=== PATIENT | male | born 1970 | race Caucasian/White ===

== ENCOUNTER 2016-07-08 09:12 | Emergency (ER) | payer SELFPAY ==
[2016-07-08 09:33] VITALS: TEMP 97.1
--- NOTE | 2016-07-08 09:50 | ED.PDOC ---
History of Present Illness - General Chief Complaint: Problem Stated Complaint: right flank pain Time Seen by Provider: 07/08/16 09:32 Source: patient Exam Limitations: no limitations - History of Present Illness Initial Comments: Patient presents with right flank pain for two days. Pain is specifically located about 7 cm inferior to the CVA. Worse with flexion and rotation of the trunk. Better with rest. Sharp in nature, constant. Also worse with deep palpation of the area. No radiation. No previous episodes. No hematuria/ frequency/dysuria. No hx of nephrolithiasis. No recent trauma or heavy physical activity. No other complaints. Timing/Duration: other - 2 days Severity: mild Improving Factors: rest Worsening Factors: movement Associated Symptoms: denies symptoms Allergies/Adverse Reactions: Allergies Penicillins Allergy (Mild, Verified 11/01/12 09:14) Home Medications: Ambulatory Orders Cyclobenzaprine HCl [Flexeril] 10 mg PO Q8HR PRN #10 tab 07/08/16 Review of Systems - Review of Systems Constitutional: States: no symptoms reported EENTM: States: no symptoms reported Respiratory: States: no symptoms reported Cardiology: States: no symptoms reported Gastrointestinal/Abdominal: States: no symptoms reported Genitourinary: States: no symptoms reported Musculoskeletal: States: see HPI Skin: States: no symptoms reported Neurological: States: no symptoms reported Endocrine: States: no symptoms reported Hematologic/Lymphatic: States: no symptoms reported Past Medical History (General) - Patient Medical History Hx Seizures: No Hx Stroke: No Hx Dementia: No Hx Asthma: No Hx of COPD: No Hx Cardiac Disorders: No Hx Congestive Heart Failure: No Hx Pacemaker: No Hx Hypertension: No Hx Thyroid Disease: No Hx Diabetes: No Hx Gastroesophageal Reflux: No Hx Renal Disease: No Hx of HIV: No Hx MRSA: No Surgical History: no surgical history Family Medical History - Family History Mother Family History: Unknown Physical Exam - Physical Exam General Appearance: Alert Respiratory: lungs clear Cardiovascular/Chest: normal peripheral pulses, regular rate, rhythm Gastrointestinal/Abdominal: normal bowel sounds, non tender Back Exam: no CVA tenderness, other - TTP over lateral right quadratus lumborum. Pain is reproduced with rotation of the trunk and flexion of the trunk but not with heel walking. Negative straight and cross-leg raise. Extremity: normal range of motion Neurologic: no motor/sensory deficits Skin Exam: normal color Progress - Progress Progress: 07/08/16 12:49 Patient had isolated leukocytosis with a normal differential. CT abdomen/pelvis and CXR all showed no acute disease nor focus of infection. UA negative. Patient afebrile. During the course of his ER stay he admitted that he has been under an unusual amount of stress recently because of a lack of employment. He smokes 1 ppd x 30 years. Leukocytosis DDX: smoking vs stress reaction vs. anxiety vs increased natural glucocorticoids Recommend follow up with pcp to repeat cbc and return to ER for any emerging sx. Norflex 60 mg IV x one relieved the back pain Laboratory Tests 07/08/16 07/08/16 07/08/16 09:23 09:45 10:30 WBC 16.5 H RBC 4.92 Hgb 15.7 Hct 46.3 MCV 94.1 H MCH 32.0 H MCHC 34.0 RDW 13.6 Plt Count 244 MPV 7.5 Absolute Neuts (auto) 11.90 H Absolute Lymphs (auto) 3.20 Absolute Monos (auto) 1.20 H Absolute Eos (auto) 0.10 Absolute Basos (auto) 0.10 Neutrophils % 71.7 Lymphocytes % 19.4 L Monocytes % 7.5 Eosinophils % 0.9 L Basophils % 0.5 Sodium 139 Potassium 3.5 L Chloride 108 Carbon Dioxide 26 Anion Gap 8.5 L BUN 7 Creatinine 0.89 BUN/Creatinine Ratio 7.9 L Random Glucose 115 H Serum Osmolality 276.4 Calcium 9.2 Total Bilirubin 0.8 AST 18 ALT 11 Alkaline Phosphatase 72 C-Reactive Protein < 0.5 Serum Total Protein 7.3 Albumin 4.6 Globulin 2.7 Albumin/Globulin Ratio 1.7 Lipase 30 TSH 6.10 H Thyroxine (T4) 9.20 Urine Color Yellow Urine Appearance Clear Urine pH 5.5 Ur Specific [place] 1.010 Urine Protein Negative Urine Glucose (UA) Negative Urine Ketones Negative Urine Blood Negative Urine Nitrite Negative Urine Bilirubin Negative Urine Urobilinogen 0.2 Ur Leukocyte Esterase Negative Urine RBC 0 Urine WBC 0 Ur Epithelial Cells 0 Urine Bacteria 0 07/08/16 11:44 WBC 16.3 H RBC 4.87 Hgb 15.5 Hct 45.9 MCV 94.4 H MCH 31.9 H MCHC 33.8 RDW 13.4 Plt Count 222 MPV 7.5 Absolute Neuts (auto) 12.40 H Absolute Lymphs (auto) 2.70 Absolute Monos (auto) 1.10 H Absolute Eos (auto) 0.10 Absolute Basos (auto) 0.00 Neutrophils % 76.0 Lymphocytes % 16.7 L Monocytes % 6.5 Eosinophils % 0.5 L Basophils % 0.3 Sodium Potassium Chloride Carbon Dioxide Anion Gap BUN Creatinine BUN/Creatinine Ratio Random Glucose Serum Osmolality Calcium Total Bilirubin AST ALT Alkaline Phosphatase C-Reactive Protein Serum Total Protein Albumin Globulin Albumin/Globulin Ratio Lipase TSH Thyroxine (T4) Urine Color Urine Appearance Urine pH Ur Specific [place] Urine Protein Urine Glucose (UA) Urine Ketones Urine Blood Urine Nitrite Urine Bilirubin Urine Urobilinogen Ur Leukocyte Esterase Urine RBC Urine WBC Ur Epithelial Cells Urine Bacteria Departure - Departure Clinical Impression: Back pain, Leukocytosis Disposition: Discharge to Home or Self Care Condition: Good Departure Forms: ED Discharge - Pt. Copy, Patient Portal Self Enrollment Diet: resume usual diet Activity: increase activity as tolerated Prescriptions: Cyclobenzaprine HCl [Flexeril] 10 mg PO Q8HR PRN #10 tab PRN Reason: Pain Home Medications: Ambulatory Orders Cyclobenzaprine HCl [Flexeril] 10 mg PO Q8HR PRN #10 tab 07/08/16 Additional Instructions: Follow up with a regular doctor to see how your symptoms are doing. You should get a repeat blood test in one week. We are providing numbers for doctors in the area as well as contact numbers so you can sign up for insurance. Return to the ER for fever or increasing symptoms.
[2016-07-08] MEDS ORDERED: MORPHINE SULFATE INJ 10 MG/ML VIAL IV ONE (10:04)
[2016-07-08] MEDS ORDERED: ACETAMINOPHEN 325 MG TAB PO ONE (10:08)
--- NOTE | 2016-07-08 10:38 | CT ---
EXAM DESCRIPTION: Abdoment/Pelvis w/o Contrast CLINICAL HISTORY: 46 years,Male,right flank pain COMPARISON: None TECHNIQUE: Multiple axial helical tomographic images were obtained of the abdomen and pelvis with out IV or oral contrast and then reconstructed sagittal coronal plane FINDINGS: The unenhanced liver is unremarkable. The spleen is unremarkable. The Pancreas is unremarkable. The adrenal glands are unremarkable. There are no stones seen in the urinary collection system. The kidneys left kidney demonstrates a 1.5 cm simple cysts parenchymal anterior midpole. And a similar size cyst in the lower pole right kidney. The gallbladder is unremarkable. No free air free fluid masses or adenopathy. The included bowel are unremarkable. The lung bases are unremarkable. The surrounding soft tissues are unremarkable. The bony elements age appropriate . Appendix is unremarkable. And there is mild calcified atherosclerotic disease of aorta and iliac vessels. IMPRESSION: Unremarkable ultrasound of the abdomen and pelvis. Except for a small simple cysts in the midpole left kidney and lower pole right kidney. Electronically signed by: Trever Trammell MD 07/08/2016 10:35 AM CDT
--- NOTE | 2016-07-08 11:19 | RAD ---
EXAM DESCRIPTION: XR CHEST 2 VIEWS CLINICAL HISTORY: right flank discomfort COMPARISON: None TECHNIQUE: PA/lateral FINDINGS: The lungs are clear of infiltrate. There is no effusion or nodule. The lungs appear hyperinflated with flattening of the diaphragms. There is hyperlucency of the lungs as well. These findings are most consistent with chronic emphysema. IMPRESSION: 1. Chronic changes consistent with emphysema, no acute process observed. Electronically signed by: Will Chappell MD 07/08/2016 11:18 AM CDT
[2016-07-08] MEDS ORDERED: ORPHENADRINE CITRATE 30 MG/ML AMP IV ONE (12:03)
[2016-07-08 12:21] VITALS: O2SAT 98
[2016-07-08 13:06] VITALS: BP 119/77
== END 2016-07-08 13:06 | disposition home or self-care (01) ==
LOC: ER 09:12
DX: M54.9 Dorsalgia, unspecified (principal); D72.829 Elevated white blood cell count, unspecified; F17.210 Nicotine dependence, cigarettes, uncomplicated; Z88.0 Allergy status to penicillin
CPT/HCPCS: 36415; 71020; 74176; 80053; 81001; 82533; 83690; 84436; 84443; 85025; 86140; J2360

== ENCOUNTER 2016-09-22 13:17 | Observation (INO) | payer SELFPAY ==
[2016-09-22] MEDS ORDERED: ONDANSETRON INJ 4 MG/2 ML VIAL IV ONE (13:34)
[2016-09-22] MEDS ORDERED: SODIUM CHLORIDE 0.9% 1000ML 1,000 ML IVS ONE (13:34)
--- NOTE | 2016-09-22 13:38 | ED.PDOC ---
History of Present Illness - General Chief Complaint: Neuro Symptoms/Deficits Stated Complaint: Lightheaded and dizzy Time Seen by Provider: 09/22/16 13:28 Source: patient, RN notes reviewed, Vital Signs reviewed Exam Limitations: no limitations - History of Present Illness Initial Comments: Patient has been lightheaded and dizzy since getting up this morning. Has worsened through the morning. Feels similar to when he had heat exhaustion in the past. No MCKEON, no SOB or chest pain. + nausea. Feels a little off balance when he moves his head. No numbness or weakness. Timing/Duration: 4-6 hours Severity: moderate Improving Factors: nothing Worsening Factors: movement Associated Symptoms: nausea/vomiting Allergies/Adverse Reactions: Allergies Penicillins Allergy (Mild, Verified 11/01/12 09:14) Home Medications: Ambulatory Orders Cyclobenzaprine HCl [Flexeril] 10 mg PO Q8HR PRN #10 tab 07/08/16 Review of Systems - Review of Systems Constitutional: States: no symptoms reported. Denies: chills, diaphoresis, fever, malaise, weakness EENTM: States: no symptoms reported Respiratory: States: no symptoms reported. Denies: short of breath Cardiology: States: no symptoms reported. Denies: chest pain, palpitations, syncope Gastrointestinal/Abdominal: States: nausea. Denies: abdominal pain, diarrhea, vomiting Musculoskeletal: States: no symptoms reported Skin: States: no symptoms reported Neurological: States: see HPI. Denies: headache, numbness, paresthesia, tingling, weakness Endocrine: States: no symptoms reported Hematologic/Lymphatic: States: no symptoms reported Past Medical History (General) - Patient Medical History Hx Seizures: No Hx Stroke: No Hx Dementia: No Hx Asthma: No Hx of COPD: No Hx Cardiac Disorders: No Hx Congestive Heart Failure: No Hx Pacemaker: No Hx Hypertension: No Hx Thyroid Disease: No Hx Diabetes: No Hx Gastroesophageal Reflux: No Hx Renal Disease: No Hx of HIV: No Hx MRSA: No Family Medical History - Family History Mother Family History: Unknown Physical Exam - Physical Exam General Appearance: Alert, Comfortable, No apparent distress, Well Developed, Well Groomed, Well Hydrated, Well Nourished Eye Exam: bilateral normal Ears, Nose, Throat: hearing grossly normal, normal ENT inspection, normal pharynx Neck: non-tender, full range of motion, supple, normal inspection Respiratory: chest non-tender, lungs clear, normal breath sounds, no respiratory distress, no accessory muscle use Cardiovascular/Chest: regular rate, rhythm, no edema, no gallop, no JVD, no murmur Gastrointestinal/Abdominal: normal bowel sounds, non tender, soft, no organomegaly, no pulsatile mass Extremity: normal range of motion Neurologic: medical underwriter II-XII nml as tested, no motor/sensory deficits, alert, normal mood/affect, oriented x 3 Skin Exam: diaphoresis Comments: Vital Signs - 24 hr 09/22/16 13:20 Temperature 98.0 F Pulse Rate [ 75 left brachial] Respiratory 20 Rate Blood Pressure 132/58 [left brachial] O2 Sat by Pulse 97 Oximetry Progress - Progress Progress: 09/22/16 14:57 HR has dropped into the 40's. Will get EKG and add cardiac enzymes to work up. 09/22/16 15:31 Discussed with Honey Trujillo, will admit for symptomatic bradycardia. Patient agreeable to admission. - Results/Orders Results/Orders: Laboratory Tests 09/22/16 09/22/16 09/22/16 13:45 13:45 13:45 WBC 10.0 RBC 4.45 L Hgb 14.5 Hct 42.6 MCV 95.9 H MCH 32.5 H MCHC 34.0 RDW 13.9 Plt Count 203 MPV 7.8 Absolute Neuts (auto) 7.40 H Absolute Lymphs (auto) 1.80 Absolute Monos (auto) 0.70 Absolute Eos (auto) 0.10 Absolute Basos (auto) 0.10 Neutrophils % 73.9 Lymphocytes % 17.9 L Monocytes % 6.7 Eosinophils % 0.8 L Basophils % 0.7 Sodium 140 Potassium 3.6 Chloride 106 Carbon Dioxide 26 Anion Gap 11.6 L BUN 9 Creatinine 1.00 BUN/Creatinine Ratio 9.0 L Random Glucose 127 H Serum Osmolality 279.7 Calcium 9.2 Total Bilirubin 0.7 AST 20 ALT 13 Alkaline Phosphatase 80 Creatine Kinase 199 H CK-MB (CK-2) 2.5 CK-MB (CK-2) % Not Reportable Troponin I < 0.02 Serum Total Protein 6.9 Albumin 4.3 Globulin 2.6 Albumin/Globulin Ratio 1.7 - EKG/XRAY/CT EKG: Leonardo, Sinus, no ST T wave changes Comments: with sinus arrhythmia, Rate 45 CT Ordered: Yes - Head: no acute changes per Rad Departure - Departure Clinical Impression: Sinus bradycardia, Dizziness, Vertigo Time of Disposition: 15:32 Disposition: Admit Patient Condition: Fair Departure Forms: ED Discharge - Pt. Copy, Patient Portal Self Enrollment Home Medications: Ambulatory Orders Cyclobenzaprine HCl [Flexeril] 10 mg PO Q8HR PRN #10 tab 07/08/16 Decision To Admit - Decistion To Admit Decision to Admit Reason: Admit from ER Decision to Admit Date: 09/22/16 Decision to Admit Time: 15:30
--- NOTE | 2016-09-22 14:53 | CT ---
EXAM DESCRIPTION: Head. CT head without contrast. CLINICAL HISTORY: Headache and dizziness. COMPARISON: None available TECHNIQUE: Multiple axial images of the head without contrast. This exam was performed according to our departmental dose-optimization program, which includes automated exposure control, adjustment of the mA and/or kV according to patient size and/or use of iterative reconstruction technique. FINDINGS: There is no CT evidence of intracranial hemorrhage, mass effect, or acute cortical infarction. The brain parenchyma and ventricles are normal. There are no abnormal extra-axial fluid collections. Vascular structures are unremarkable. There is no acute calvarial defect. Moderate mucosal thickening throughout the ethmoid air cells. The mastoid air cells are clear. IMPRESSION: No CT evidence of an acute intracranial abnormality. Electronically signed by: Jesus Dyer MD 09/22/2016 2:53 PM CDT
--- NOTE | 2016-09-22 15:59 | HP ---
SUPERVISING PHYSICIAN: Saravanan Ken MD CHIEF COMPLAINT: Weakness and dizziness. HISTORY OF PRESENT ILLNESS: This is a 46-year-old, male patient who presented to the Emergency Room today with dizziness and lightheadedness that had started earlier in the morning. He actually had these symptoms about a month ago, but no other symptoms prior to that. 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 There was no loss of consciousness. He did have dry mouth as well as some symptoms of acid reflux. There was no shortness of breath or chest pain. He did feel slightly nauseated. He was given some fluids in the Emergency Room. His WBCs were 10, hemoglobin 14.5, hematocrit 42.6, platelet count 203. Sodium 140, potassium 3.6, chloride 106, carbon dioxide 26, BUN 9, creatinine 1, glucose 127. Initial creatinine kinase was 199. CK-MB 2.5, troponin less than 0.02. CT of the head was done and per radiologic interpretation showed no CT evidence of acute intracranial abnormality. His vital signs in the Emergency Room initially showed he was afebrile, heart rate 75, blood pressure 132/58, respiratory rate 16, O2 saturation 98% on room air. The patient was about to be discharged from the Emergency Room and on telemetry, his heart rate dropped down to 47 and over the course of the next several hours, his heart rate continued between 48 and 50. He had no complaints of shortness of breath or chest pain during that. He did continue some complaints of slight dizziness. I was called for admission. PAST MEDICAL HISTORY: 1. Back injury in 1994. Otherwise, no medical history. PAST SURGICAL HISTORY: None. CURRENT MEDICATIONS: No outpatient medications. ALLERGIES: NO KNOWN DRUG ALLERGIES. SOCIAL HISTORY: He smokes approximately one pack of cigarettes a day. He has smoked for 32+ years. He rarely drinks alcoholic beverages and he denies any illicit drug use. He is single. He works at [employer] at [employer] [place]. 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 REVIEW OF SYSTEMS: Negative with the exception as per history of present illness. PHYSICAL EXAMINATION: VITAL SIGNS: Temperature 97.4. Heart rate 50. Blood pressure 123/77. Respiratory rate 16. O2 99%. GENERAL: This is a 46-year-old male patient who is lying in hospital bed in no acute distress. HEENT: Normocephalic, atraumatic. Pupils are equal and reactive. Oropharynx is clear. Oral mucous membranes are moist. NECK: Supple without mass. RESPIRATORY: Clear to auscultation bilaterally. CHEST: There is equal rise and fall of the chest with inspiration and expiration. CARDIOVASCULAR: Bradycardic rate and rhythm. ABDOMEN: Soft, nondistended, nontender. Bowel sounds are positive. EXTREMITIES: No cyanosis, clubbing or edema. NEUROLOGIC: Awake, alert and oriented times three. LABORATORY: Labs and films are per the history of present illness. He does have his second set of cardiac enzymes pending. All other labs and films have been reviewed via the EMR. ASSESSMENT: 1. Symptomatic bradycardia. 2. Dizziness and weakness. 3. Possible heat exhaustion, with a normal serum osmolality. 4. Hyperglycemia. PLAN: We will place the patient in observation, place him on the plant safety engineer and watch his heart rate overnight. I will check some lab in the morning, a TSH, hemoglobin A1c. We will refer him to cardiology at some point and he needs to get a primary care provider as he does not have one at this point. We will also contact [facility] for help in that area. I will check a chest x-ray in the morning as well as give him some p.r.n. breathing treatments. We will monitor the patient closely and followup as needed. Dr. Ken is the collaborating physician and available for consultation. #[id number] [facility]
[2016-09-22] MEDS ORDERED: SODIUM CHLORIDE 0.9% (FLUSH) 10 ML SYG IV PRN (18:01)
[2016-09-22] MEDS ORDERED: MORPHINE SULFATE INJ 10 MG/ML VIAL IV PRN (18:01)
[2016-09-22] MEDS ORDERED: ACETAMINOPHEN 325 MG TAB PO PRN (18:01)
[2016-09-22] MEDS ORDERED: NITROGLYCERIN 0.4 MG 25 EA TAB SL PRN (18:01)
[2016-09-22] MEDS ORDERED: IV SET AND CAP CHANGE INJ INJ SCH (18:30)
[2016-09-22] MEDS ORDERED: ALBUTEROL SULFATE 2.5 MG/3 ML VIAL NEB PRN (19:11)
[2016-09-22] MEDS: SODIUM CHLORIDE 0.9% (FLUSH) 10 ML SYG IV SCH (20:32)
[2016-09-22] MEDS: LORATADINE 10 MG TAB PO SCH (20:32)
[2016-09-22] MEDS ORDERED: BENZOCAINE-MENTH LOZ (CEPACOL) 1 EA LOZ MT PRN (22:54)
[2016-09-23] MEDS: PANTOPRAZOLE SODIUM TAB 40 MG PO SCH ×2 (05:53→05:58)
--- NOTE | 2016-09-23 07:00 | RAD ---
Procedure: XR CHEST 2 VIEWS Exam Date: 09/23/2016 Ordering Provider: VENANCIO CAMPOS Clinical Indication: bradycardia Comparison: 07/08/2016 Findings: Cardiac silhouette: Normal Pulmonary vasculature : Normal Mediastinal contour: Normal Aortic contour: Normal Focal lung consolidation: None. COPD. Pleural effusion: None Pneumothorax: None Acute bony or soft tissue abnormality: None Impression: 1. No acute abnormalities in the chest. Electronically signed by: Charlie Martell MD 09/23/2016 7:00 AM CDT
[2016-09-23] MEDS ORDERED: ASPIRIN TABLET 325 MG TAB ONE (07:16)
[2016-09-23] MEDS: LORATADINE 10 MG TAB PO SCH (08:50)
[2016-09-23] MEDS: SODIUM CHLORIDE 0.9% (FLUSH) 10 ML SYG IV SCH ×2 (08:50→21:06)
[2016-09-23] MEDS: ASPIRIN TABLET 325 MG TAB PO SCH (08:50)
--- NOTE | 2016-09-23 11:15 | PN ---
SUPERVISING PHYSICIAN: Saravanan Ken MD DATE: 09/23/16 SUBJECTIVE: The patient is sitting up in his hospital bed. He is visiting with friends. He has no complaints of chest pain, shortness of breath, nausea, vomiting, or dizziness. We discussed at length his plan of care including seeing Dr. Gonzalez tomorrow. OBJECTIVE: VITAL SIGNS: Afebrile. Heart rate 49 to 52 beats per minute. Blood pressure 117/65. Respiratory rate 18. O2 saturation 94% on room air. LUNGS: Clear to auscultation bilaterally. CARDIAC: Bradycardic rate and regular rhythm. ABDOMEN: Soft, nontender, nondistended. Bowel sounds are positive. EXTREMITIES: No cyanosis, clubbing or edema. NEUROLOGIC: Awake, alert and oriented times three. LABORATORY: White count 10, hemoglobin 14.3, hematocrit 41.5. Sodium 138, potassium 4.1, chloride 109, carbon dioxide 23, BUN 10, creatinine 0.85, serum osmolality 274.6. His second set of cardiac enzymes were negative. Serum protein 6. Triglycerides 69, LDL cholesterol 136.9, HDL cholesterol 37. TSH 1.61. Hemoglobin A1c 5.2. Chest x-ray per radiologic interpretation showed no acute abnormalities in the chest. All other labs and films have been reviewed via the EMR. ASSESSMENT: 1. Symptomatic bradycardia. 2. Dizziness and weakness. 3. Possible heat exhaustion, with a normal serum osmolality on admission. 4. Hyperglycemia, now resolved. Hemoglobin A1c 5.2. PLAN: We will continue present supportive care. We will watch his cardiac rhythm overnight. I have consulted Dr. Gonzalez for in the morning and we will defer his cardiac issues to him as long as he does not have any problems overnight. Otherwise, we will continue to monitor the patient closely and followup as needed. Dr. Ken is the collaborating physician and available for consultation. #[id number] [facility]
[2016-09-23] MEDS ORDERED: PANTOPRAZOLE SODIUM IV 40 MG VIAL IV ONE (18:06)
[2016-09-23] MEDS ORDERED: NICOTINE PATCH 14 MG TD SCH (19:30)
[2016-09-24] MEDS: PANTOPRAZOLE SODIUM TAB 40 MG PO SCH (05:32)
[2016-09-24] MEDS: ASPIRIN TABLET 325 MG TAB PO SCH (10:12)
[2016-09-24] MEDS: SODIUM CHLORIDE 0.9% (FLUSH) 10 ML SYG IV SCH (10:12)
[2016-09-24] MEDS: LORATADINE 10 MG TAB PO SCH (10:12)
[2016-09-24 10:43] VITALS: BP 103/69; TEMP 97; O2SAT 98
--- NOTE | 2016-09-24 17:18 | DS ---
SUPERVISING PHYSICIAN: Saravanan Ken MD DISCHARGE DIAGNOSIS: 1. Symptomatic bradycardia. 2. Dizziness and weakness. 3. Possible heat exhaustion, with a normal serum osmolality on admission. 4. Hyperglycemia, now resolved. Hemoglobin A1c 5.2. HISTORY OF PRESENT ILLNESS: This is a 46-year-old male patient who presented to the Emergency Room on the day of admission with dizziness and lightheadedness that had started earlier that morning. He had the exact same symptoms about one month ago, but no other symptoms prior to that. He has had heat exhaustion in the past. 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 There was no loss of consciousness. On admission to the Emergency Room, he had dry mouth as well as some symptoms of acid reflux. There was no chest pain or shortness of breath. He also had some nausea. He was given fluids in the Emergency Room and his lab in the Emergency Room is as follows: White count 10, hemoglobin 14.5, hematocrit 42.6, platelet count 203. Sodium 140, potassium 3.6, chloride 106, carbon dioxide 26, BUN 9, creatinine 1, glucose 127. Initial creatinine kinase was 199, CK-MB 2.5, troponin less than 0.02. CT of the head per radiologic interpret showed no CT evidence of acute intracranial abnormality. His vital signs in the Emergency Room were within normal limits with a heart rate of around 75. The patient was about to be discharged and his heart rate dropped into the mid-40s. They observed him over the next few hours and his heart rate continued around 48 to 50. He had no complaints of shortness of breath or chest pain during that time. He did continue complaints of some dizziness. He was placed in observation in the hospital. HOSPITAL COURSE: The patient had no further symptoms of nausea, vomiting, chest pain or shortness of breath. He did have several incidences of very mild dizziness, but no symptoms like when he was admitted to the Emergency Room. Dr. Gonzalez was consulted for the symptomatic bradycardia. He was seen by Dr. Gonzalez today and with no further evaluation needed other than he needs to stay well hydrated as well as followup and get a primary care physician. He is a one pack a day smoker and we talked extensively about him trying to quit smoking and a nicotine patch was placed on him. DISCHARGE PLAN: The patient will be discharged home in good condition. He is to resume his previous activity although he should be very careful and make sure he stays well hydrated as well as to make sure he does not get overheated. He is to resume his previous diet. It is strongly recommended that he stop smoking and he has requested that I send him some nicotine patches to assist with that. He needs to obtained a primary care provider and followup within the next one to two weeks for routine care. He is to return to the hospital for any further complications or problems. DISCHARGE MEDICATIONS: 1. Nicotine patch. 2. Daily aspirin. Dr. Ken is the collaborating physician and available for consultation. #[id number] [facility]
[2016-09-24] MEDS ORDERED: NICOTINE PATCH 14 MG TD SCH (21:00)
== END 2016-09-24 14:40 | disposition home or self-care (01) ==
LOC: ER 13:17 → MS 15:57
PROVIDERS: ADMIT Nurse Practitioner Acute Care; ATTEND Nurse Practitioner Acute Care
DX: R00.1 Bradycardia, unspecified (principal); R42 Dizziness and giddiness; R53.1 Weakness; R73.9 Hyperglycemia, unspecified; F17.210 Nicotine dependence, cigarettes, uncomplicated; R11.2 Nausea with vomiting, unspecified; Z79.899 Other long term (current) drug therapy
CPT/HCPCS: 36415 ×4; 70450; 71020; 80053 ×2; 80061; 82550 ×2; 82553 ×2; 83036; 84443; 84484 ×2; 85025 ×2; 93005 ×3; 94762; 96361; 96374; 96375; 99284; 99406; J2405; J7030

== ENCOUNTER 2020-01-16 07:46 | Observation (INO) | payer OTHER ==
--- NOTE | 2020-01-16 08:17 | ED.PDOC ---
History of Present Illness - General Chief Complaint: Respiratory Problem Stated Complaint: dizziness when changing positions, SOB Time Seen by Provider: 01/16/20 08:05 Source: patient, RN notes reviewed, Vital Signs reviewed, family - father Exam Limitations: no limitations - History of Present Illness Initial Comments: Patient is a 49-year-old white male who presents with complaints of dizziness, right flank pain and anxiety. Patient has a history of cardiac dysrhythmia. The right flank pain is stabbing in nature, it is intermittent, it is lasted over 24 hours. The dizziness has been for the last 2 to 3 days. Nothing makes the pain better or worse. The dizziness is worse with change in position. There is no radiation of the pain. Timing/Duration: 24 hours Severity: moderate Improving Factors: nothing Worsening Factors: other - Change of position Associated Symptoms: weakness Allergies/Adverse Reactions: Allergies Penicillins Allergy (Mild, Verified 12/06/19 13:22) Home Medications: Ambulatory Orders Apixaban [Eliquis] 5 mg PO BID 01/16/20 Aspirin [Baby Aspirin] 81 mg PO DAILY 01/16/20 Atorvastatin Calcium 40 mg PO BEDTIME 01/16/20 Carvedilol 3.125 mg PO BID 01/16/20 Lisinopril 2.5 mg PO DAILY 01/16/20 Spironolactone 12.5 mg PO DAILY 01/16/20 Review of Systems - Review of Systems Constitutional: States: see HPI, weakness. Denies: chills, fever, malaise EENTM: States: no symptoms reported. Denies: eye pain, blurred vision, double vision Respiratory: States: no symptoms reported. Denies: cough, short of breath, stridor, wheezing Cardiology: States: no symptoms reported. Denies: chest pain, palpitations, syncope Gastrointestinal/Abdominal: States: see HPI, abdominal pain. Denies: diarrhea, nausea, vomiting Genitourinary: States: other - Pt with c/o difficulty urinating. Pt states he has to strain to urinate. . Denies: discharge, dysuria, frequency Musculoskeletal: States: back pain - right flank pain Skin: States: no symptoms reported. Denies: change in color, dryness, rash Neurological: States: see HPI, weakness. Denies: headache, numbness, paresthesia Endocrine: States: no symptoms reported. Denies: increased hunger, increased thirst, increased urine Hematologic/Lymphatic: States: no symptoms reported. Denies: blood clots, easy bleeding All other Systems: No Change from Baseline Past Medical History (General) - Patient Medical History Hx Seizures: No Hx Stroke: No Hx Dementia: No Hx Asthma: No Hx of COPD: No Hx Cardiac Disorders: Yes - past NC Hx Congestive Heart Failure: No Hx Pacemaker: No Hx Hypertension: No Hx Thyroid Disease: No Hx Diabetes: No Hx Gastroesophageal Reflux: No Hx Renal Disease: No Hx of HIV: No Hx MRSA: No - Vaccination History Hx Tetanus, Diphtheria Vaccination: Yes Hx Influenza Vaccination: Yes Hx Pneumococcal Vaccination: Yes - Social History Hx Tobacco Use: Yes Hx Alcohol Use: No Hx Substance Use: No Hx Physical Abuse: No Hx Emotional Abuse: No - Activities of Daily Living Hospice Agency (if applicable):: None - Female History Patient : No Family Medical History - Family History Mother Family History: Unknown Father Living Status: Still Living Hx Cardiac Disease: Yes Physical Exam - Physical Exam General Appearance: Alert, Anxious, Well Developed, Well Groomed, Well Hydrated, Well Nourished Eye Exam: bilateral normal Ears, Nose, Throat: hearing grossly normal, normal ENT inspection, normal pharynx Neck: non-tender, full range of motion, supple Respiratory: chest non-tender, lungs clear, normal breath sounds, no respiratory distress, no accessory muscle use Cardiovascular/Chest: normal peripheral pulses, regular rate, rhythm, no edema, no gallop, no JVD, no murmur Peripheral Pulses: radial,right: 2+, radial,left: 2+ Gastrointestinal/Abdominal: normal bowel sounds, non tender, soft, no organomegaly, no pulsatile mass Back Exam: normal inspection, no CVA tenderness, no vertebral tenderness Extremity: normal range of motion, non-tender, normal inspection, no pedal edema, no calf tenderness Neurologic: speech writer II-XII nml as tested, no motor/sensory deficits, alert, normal mood/affect, oriented x 3, other - anxious Skin Exam: normal color, warm/dry Lymphatic: no adenopathy Progress - Progress Progress: Differential diagnosis: Pneumonia, kidney stone, pyelonephritis, UTI among others 01/16/20 10:30 Lab work relatively unremarkable except for mildly elevated white count. Patient noted to have a 10% pneumothorax on CT scan of the chest. Plan on admission to the hospital for oxygen therapy and reevaluation. I discussed this patient with Dr. Rey who will see the patient in consult in the hospital. I discussed this patient with Amado Samuels NP, and he accepts patient for admiss ion. Keith Madrid M.D. #[id number] - Results/Orders Results/Orders: EXAM: Abdoment/Pelvis w/o Contrast CLINICAL HISTORY: right flank pain COMPARISON STUDY: CT abdomen and pelvis from July 08, 2016 TECHNIQUE: Non-oral, non-IV contrast CT images were obtained through the abdomen and pelvis. Coronal and sagittal reconstructions were acquired. FINDINGS: The visible portion of the chest shows a right-sided pneumothorax. The heart is not enlarged. The aorta is non-dilated. Solid organ evaluation is limited without IV contrast administration. The unenhanced images of the liver, spleen, pancreas, adrenal glands and kidneys demonstrate no visible abnormality. The gallbladder is present. Bowel evaluation is limited without oral contrast administration. There is no bowel obstruction/dilatation. The appendix is visible and negative. There are no mesenteric inflammatory changes. The urinary bladder is distended with no visible abnormality on these images. No urinary calculi are identified. There are no significant bone abnormalities. CONCLUSION: 1. Small right-sided pneumothorax. 2. Distended urinary bladder, please correlate for voluntary or involuntary retention. The findings were discussed with the referring clinician. This exam was performed according to our departmental dose-optimization program, which includes automated exposure control, adjustment of the mA and/or kV according to patient size and/or use of iterative reconstruction technique. . Electronically signed by: Trevon Heck MD 01/16/2020 8:36 AM EXAM DESCRIPTION: Chest w/Contrast CLINICAL HISTORY: 49 years Male, right upper flank pain. COMPARISON: Chest x-ray dated 16 January 2020 TECHNIQUE: Transaxial images were obtained with intravenous contrast media. Sagittal and coronal reconstruction was performed.This exam was performed according to our departmental dose-optimization program, which includes automated exposure control, adjustment of the mA and/or kV according to patient size and/or use of iterative reconstruction technique. FINDINGS: The thyroid is normal in appearance. No pathologic axillary adenopathy is observed. No hilar or mediastinal adenopathy is detected. A tiny right pleural effusion is observed. A small right-sided pneumothorax is noted. Mild apical interstitial scarring is observed. Minimal coronary artery calcification is noted. Minimal right basilar atelectasis is observed. No adrenal masses are detected. Mild degenerative changes are seen in the thoracic spine. No rib fracturing is detected. IMPRESSION: A small less than 10% right-sided pneumothorax is observed. No rib fracturing is detected. Electronically signed by: Trever Bueno MD 01/16/2020 9:48 AM 01/16/20 08:05 IV Care:Saline Lock per Protoc QSHIFT Telemetry ONCE Sodium Chloride 0.9% (Flush) [Saline Flush Syringe] 3 ml IV PRN PRN 01/16/20 08:15 EKG STAT 01/16/20 08:43 Hold Metformin x 48Hrs [id number] 01/16/20 09:00 Pulse Ox Daily Laboratory Results - last 24 hr 01/16/20 08:40 WBC 16.7 H RBC 5.16 Hgb 17.0 Hct 48.5 MCV 93.9 MCH 32.9 H MCHC 35.0 RDW 14.4 Plt Count 328 MPV 7.7 Absolute Neuts (auto) 12.50 H Absolute Lymphs (auto) 2.10 Absolute Monos (auto) 1.70 H Absolute Eos (auto) 0.30 Absolute Basos (auto) 0.10 Neutrophils % 74.8 Lymphocytes % 12.6 L Monocytes % 10.4 H Eosinophils % 1.8 Basophils % 0.4 PT 9.9 INR 1.00 PTT (SP) 26.7 Sodium 140 Potassium 3.6 Chloride 101 Carbon Dioxide 26 Anion Gap 16.6 BUN < 6 L Creatinine 0.78 BUN/Creatinine Ratio 7.7 L Random Glucose 109 H Serum Osmolality 277.2 Calcium 9.3 Magnesium 1.9 Total Bilirubin 1.6 H Direct Bilirubin 0.3 H Indirect Bilirubin 1.3 H AST 77 H ALT 97 H Alkaline Phosphatase 103 Creatine Kinase 539 H* CK-MB (CK-2) 6.6 H* CK-MB (CK-2) % 1.22 Troponin I 0.03 Serum Total Protein 7.4 Albumin 4.3 Vital Signs 01/16/20 01/16/20 01/16/20 07:46 08:02 08:12 Temperature 98.5 F Pulse Rate [ 108 H 108 H brachial] Respiratory 22 22 Rate Blood Pressure 139/98 [Left Arm] O2 Sat by Pulse 98 98 Oximetry 01/16/20 01/16/20 01/16/20 08:30 09:00 10:00 Temperature 98.0 F Pulse Rate [ 98 H 94 H 100 H brachial] Respiratory 18 20 20 Rate Blood Pressure 124/93 119/90 116/95 [Left Arm] O2 Sat by Pulse 98 100 100 Oximetry Departure - Departure Clinical Impression: Pneumothorax of right lung after biopsy, Anxiety, Flank pain Leukocytosis Qualifiers: Leukocytosis type: other Qualified Code(s): D72.828 - Other elevated white blood cell count Time of Disposition: 11:01 Disposition: Admit Patient Condition: Fair Departure Forms: ED Discharge - Pt. Copy, Patient Portal Self Enrollment Home Medications: Ambulatory Orders Apixaban [Eliquis] 5 mg PO BID 01/16/20 Aspirin [Baby Aspirin] 81 mg PO DAILY 01/16/20 Atorvastatin Calcium 40 mg PO BEDTIME 01/16/20 Carvedilol 3.125 mg PO BID 01/16/20 Lisinopril 2.5 mg PO DAILY 01/16/20 Spironolactone 12.5 mg PO DAILY 01/16/20 Decision To Admit - Decistion To Admit Decision to Admit Date: 01/16/20 Decision to Admit Time: 10:05
[2020-01-16] MEDS: SODIUM CHLORIDE 0.9% (FLUSH) 10 ML SYG IV PRN (08:31)
--- NOTE | 2020-01-16 08:31 | RAD ---
EXAM: Chest,1 View CLINICAL HISTORY: dizziness COMPARISON STUDY: Chest x-ray from June 20, 2019. TECHNICAL: A single anteroposterior (AP) view of the chest was performed. FINDINGS: A small apical right pneumothorax is present. This pneumothorax is less than 10 or 15%. No definitive rib fracture. No consolidations, effusions, or edema. The heart size is not enlarged. AP portable technique causes magnification with some enlargement of the cardiac silhouette. IMPRESSION: Less than 10-15% right pneumothorax. Referring clinician will be notified. Electronically signed by: Trevon Heck MD 01/16/2020 8:30 AM CDT
--- NOTE | 2020-01-16 08:37 | CT ---
EXAM: Abdoment/Pelvis w/o Contrast CLINICAL HISTORY: right flank pain COMPARISON STUDY: CT abdomen and pelvis from July 08, 2016 TECHNIQUE: Non-oral, non-IV contrast CT images were obtained through the abdomen and pelvis. Coronal and sagittal reconstructions were acquired. FINDINGS: The visible portion of the chest shows a right-sided pneumothorax. The heart is not enlarged. The aorta is non-dilated. Solid organ evaluation is limited without IV contrast administration. The unenhanced images of the liver, spleen, pancreas, adrenal glands and kidneys demonstrate no visible abnormality. The gallbladder is present. Bowel evaluation is limited without oral contrast administration. There is no bowel obstruction/dilatation. The appendix is visible and negative. There are no mesenteric inflammatory changes. The urinary bladder is distended with no visible abnormality on these images. No urinary calculi are identified. There are no significant bone abnormalities. CONCLUSION: 1. Small right-sided pneumothorax. 2. Distended urinary bladder, please correlate for voluntary or involuntary retention. The findings were discussed with the referring clinician. This exam was performed according to our departmental dose-optimization program, which includes automated exposure control, adjustment of the mA and/or kV according to patient size and/or use of iterative reconstruction technique. . Electronically signed by: Trevon Heck MD 01/16/2020 8:36 AM CDT
--- NOTE | 2020-01-16 09:50 | CT ---
EXAM DESCRIPTION: Chest w/Contrast CLINICAL HISTORY: 49 years Male, right upper flank pain. COMPARISON: Chest x-ray dated 16 January 2020 TECHNIQUE: Transaxial images were obtained with intravenous contrast media. Sagittal and coronal reconstruction was performed.This exam was performed according to our departmental dose-optimization program, which includes automated exposure control, adjustment of the mA and/or kV according to patient size and/or use of iterative reconstruction technique. FINDINGS: The thyroid is normal in appearance. No pathologic axillary adenopathy is observed. No hilar or mediastinal adenopathy is detected. A tiny right pleural effusion is observed. A small right-sided pneumothorax is noted. Mild apical interstitial scarring is observed. Minimal coronary artery calcification is noted. Minimal right basilar atelectasis is observed. No adrenal masses are detected. Mild degenerative changes are seen in the thoracic spine. No rib fracturing is detected. IMPRESSION: A small less than 10% right-sided pneumothorax is observed. No rib fracturing is detected. Electronically signed by: Trever Bueno MD 01/16/2020 9:48 AM CDT
[2020-01-16] MEDS ORDERED: LISINOPRIL 5 MG TAB PO ONE (10:04)
[2020-01-16] MEDS ORDERED: SPIRONOLACTONE 25 MG TAB PO ONE (10:04)
[2020-01-16] MEDS ORDERED: ASPIRIN (CHEWABLE) 81 MG TAB PO ONE (10:04)
[2020-01-16] MEDS ORDERED: APIXABAN 5 MG TAB PO ONE (10:04)
[2020-01-16] MEDS ORDERED: CARVEDILOL 3.125 MG TAB PO ONE (10:05)
--- NOTE | 2020-01-16 11:41 | HP ---
SUPERVISING PHYSICIAN: Saravanan Ken MD CHIEF COMPLAINT: Right sided chest wall pain. HISTORY OF PRESENT ILLNESS: Mr. Schilling is a 49-year-old male patient with a history of ischemic cardiomyopathy secondary to myocardial infarction suffered in June of this year with a left ventricular thrombus on Eliquis. He presented today complaining of some dizziness, right flank pain and some mild anxiety. It was noted the flank pain was stabbing. He denied any actual trauma. He noted some dizziness over the last 2 or 3 days. The pain in his right flank area, nothing makes it better, no repositioning. He does note that when he coughs or takes a deep breath, it seems to make the pain worse. A CT of his chest demonstrated a small, less than 10%, right sided pneumothorax. No rib fractures detected. His vital signs initially in the Emergency Room showed he was satting 98% on room air. He was mildly tachypneic at 22 and hypertensive with blood pressure 139/98, heart rate 108, temperature 98.5. Given his abdominal pain or right sided flank pain, he also had an abdominopelvic CT without contrast which showed a distended bladder and other than the small right sided pneumothorax, no acute findings. The patient was started on oxygen therapy and a consult with Dr. Rubin for the pneumothorax was requested. The patient is going to now be placed in observation for the spontaneous pneumothorax for further treatment and evaluation. PAST MEDICAL HISTORY: 1. Myocardial infarction with anterior wall involvement with resulting cardiac arrest. 2. Congestive heart failure secondary to ischemic cardiomyopathy with last echocardiogram in August of 2019 showing ejection fraction of approximately 35-40%. 3. Left ventricular thrombus on chronic anticoagulation in the form of Eliquis. PAST SURGICAL HISTORY: No surgeries listed. HOME MEDICATIONS: 1. Lisinopril 2.5 mg daily. 2. Carvedilol 3.125 mg b.i.d. 3. Atorvastatin 40 mg at bedtime. 4. Baby aspirin 81 mg daily. 5. Eliquis 5 mg b.i.d. 6. Spironolactone 12.5 mg daily. ALLERGIES: PENICILLINS. FAMILY HISTORY: Noncontributory. SOCIAL HISTORY: The patient lives with his parents in [place]. He is single, disabled. He does have a history of smoking over 32 years, but quit this year. He rarely drinks alcohol and denies illicit drug use. REVIEW OF SYSTEMS: CONSTITUTIONAL: As noted in history of present illness, he denies any chills or fever or general malaise. HEENT: Negative for headaches, sore throats, earaches, nasal congestion, vision changes. RESPIRATORY: As noted in history of present illness. He denies any actual shortness of breath or wheezing. He does have a nonproductive cough. CARDIOVASCULAR: As noted in history of present illness, chest wall pain worsened with deep inspiratory effort and coughing. Negative for palpitations or syncopal episodes. GASTROINTESTINAL: As noted in history of present illness, right upper back quadrant pain. Negative for nausea, vomiting, diarrhea, constipation. GENITOURINARY: He notes he has a little bit of difficulty with urinating, straining to urinate, but denies any dysuria, hematuria, polyuria. MUSCULOSKELETAL: Right flank pain. No joint swelling, arthralgias. SKIN: Negative for lesions, rashes, moles or unexplained changes. NEUROLOGIC: Positive for generalized weakness. Negative for headaches, numbness, paresthesias. ENDOCRINE: Negative for increased hunger, thirst or urination. HEMATOLOGIC: Positive for blood clots as noted in history of present illness. He has some generalized easy bruising secondary to Eliquis, but denies any unexplained bleeding or transfusion reactions. PHYSICAL EXAMINATION: VITAL SIGNS: On admission to the Medical/Surgical Unit, he had temperature 98.6, pulse 79, blood pressure 130/87, respirations 20, saturation 100% on non- rebreather. GENERAL: The patient looked to be resting comfortably in no acute distress. At time of exam, he was alert. HEENT: Tympanic membranes clear bilaterally. Oropharynx is pink, moist without any lesions. NECK: Supple, nontender with full range of motion. No jugular venous distention noted. RESPIRATORY: Lung sounds are essentially clear, just diminished towards the bases bilaterally. Chest wall showed equal bilateral rise and fall excursion. No crepitus. No wheezing, rhonchi or rales. CARDIOVASCULAR: Regular rate and rhythm. ABDOMEN: Soft, nontender. Positive bowel sounds. EXTREMITIES: There is no cyanosis, clubbing or edema. NEUROLOGIC: Cranial nerves II-XII are grossly intact. Facial features are symmetrical. Extraocular movements are within normal limits. There is no nystagmus noted. The patient is alert and oriented times three. LABORATORY: White count showed leukocytosis of 16,700 with a left shift. Coagulation studies showed PT 9.9 and INR 1, PTT 26.7. Chemistries showed normal electrolytes, creatinine 0.78. Liver functions were showing some elevation of bilirubin at 1.6 as well as AST is 77, ALT 97. CK elevated at 539. Troponin 0.03. MICROBIOLOGY: RADIOLOGY: Chest CT per radiologic interpretation showed a small, less than 10%, right sided pneumothorax. No rib fracture. CT of the abdomen and pelvis without contrast showed the right sided pneumothorax with distended urinary bladder. No other findings. ASSESSMENT: 1. Right sided spontaneous pneumothorax. 2. Leukocytosis, likely secondary to #1. No current signs of pneumonia. 3. Elevated liver enzymes including ALT, AST and bilirubin, etiology uncertain at this point, pending ultrasound and further studies. 4. History of previous myocardial infarction with anterior wall involvement and resulting cardiac arrest in June of 2019. 5. Left ventricular apical thrombus on Eliquis. 6. Congestive heart failure secondary to ischemic cardiomyopathy with last echocardiogram in August of 2019 showing ejection fraction 35-40% and the left ventricular thrombus. PLAN: Mr. Schilling is going to be placed in observation for close monitoring and treatment of the underlying pneumothorax. I did request records from Dr. Gonzalez' office, chemical mixer. Dr. Rubin has been consulted in regards to the pneumothorax. At this time, we will leave him on high-flow oxygen in the form of a non-rebreather. We will repeat labs and chest x-ray n the morning. Dr. Rubin has also ordered an ultrasound of the liver to further assess the elevated ALT, AST and bilirubin. He will be on telemetry for close cardiac monitoring. We will continue Eliquis for DVT prophylaxis. We will continue to follow the patient along with Dr. Rubin until discharge, hopefully within the next 24 to 48 hours. Until then, we will continue to monitor and treat as needed. #[id number] [facility]
[2020-01-16] MEDS ORDERED: ALBUTEROL SULFATE 2.5 MG/3 ML VIAL NEB PRN (11:58)
[2020-01-16] MEDS ORDERED: HYDROcodone 5MG/APAP 325MG 1 EA TAB PO PRN (11:58)
[2020-01-16] MEDS ORDERED: ACETAMINOPHEN 325 MG TAB PO PRN (11:58)
[2020-01-16] MEDS ORDERED: ONDANSETRON INJ 4 MG/2 ML VIAL IV PRN (11:58)
[2020-01-16] MEDS ORDERED: SODIUM CHLORIDE 0.9% (FLUSH) 10 ML SYG IV PRN (11:58)
[2020-01-16] MEDS ORDERED: SODIUM CHLORIDE 0.45% 1000ML 1,000 ML IVS PRN (14:00)
--- NOTE | 2020-01-16 14:29 | CONS ---
DATE OF CONSULTATION: 01/16/20 HISTORY OF PRESENT ILLNESS: The patient is a 49-year-old male who has a 3-day history of right flank pain extending up to his lower rib cage. He denies fever or chills, denies hematuria, denies cough, shortness of breath or chest pain. He denies previous episode of like illness. He denies trauma to the chest or the flank. The patient has past medical history significant for a cardiac event approximately 3 months ago and had a long period of cardiac resuscitation, after which he has resolved with no known complications. He did apparently have a myocardial infarction. I am not aware of whether or not this patient was stented. We are attempting to get his records from Dr. Gonzalez, his facilities flight check pilot. The pain is not radiating. It does get somewhat worse from change of position. He also has been dizzy upon moving, especially rising. He also has no fever, chills or change in his smell or taste. PAST MEDICAL HISTORY: Besides the cardiac event, his past medical history is unremarkable. SOCIAL HISTORY: The patient is single, . He smoked until this cardiac event approximately 3 months ago. He drinks moderately. There is no history of illicit drug use. REVIEW OF SYSTEMS: CONSTITUTIONAL: There has been no fever or chills. HEENT: No blurred vision or double vision. RESPIRATORY: Denies respiratory symptoms or upper respiratory symptoms. GENITOURINARY: He states his urine has been somewhat darker, but denies blood or icteric urine. PHYSICAL EXAMINATION: GENERAL: The patient is awake, alert, cooperative. He is wearing a non- rebreather mask. HEENT: Sclerae nonicteric. Mucous membranes mildly moist. NECK: Without adenopathy. BACK: Without CVA tenderness. CHEST: Equal breath sounds anteriorly. HEART: Regular rate and rhythm. ABDOMEN: Soft and benign. RECTAL: Deferred. EXTREMITIES: Without cyanosis, clubbing or edema. LABORATORY: White count 16,000, hemoglobin 17, platelet count 328,000, 74% neutrophils. Coagulation studies are all within normal limits. Chemistry showed potassium 3.6, creatinine 0.78. Liver function tests are mildly elevated as is CK and CK-MB. Troponin within normal limits. Urinalysis pending. RADIOLOGY: CT and chest x-ray reveal a small right pneumothorax with no fractures and a tiny right pleural effusion. CT scan of the abdomen reveals no pathology involving the liver, gallbladder or kidneys. ASSESSMENT: 1. Right sided spontaneous pneumothorax, minimal. 2. Mild dehydration. 3. Elevated liver function tests. 4. History of cardiac event, which we do not have documentation of. PLAN: Mild rehydration. Repeat chest x-ray. Would recommend an ultrasound of the gallbladder to evaluate the gallbladder, bile ducts and liver. #[id number] [facility]
[2020-01-16] MEDS: IV SET AND CAP CHANGE INJ INJ SCH (16:13)
--- NOTE | 2020-01-16 18:43 | US ---
EXAM DESCRIPTION: Liver CLINICAL HISTORY: 49 years Male elevated lfts rt flank pain COMPARISON: CT abdomen and pelvis study from earlier in the day. TECHNIQUE: Transabdominal grayscale imaging performed to evaluate the right upper quadrant. FINDINGS: There is sludge in the gallbladder. No gallbladder wall thickening or pericholecystic fluid. The common bile duct measures 0.83 cm. The liver measures 15.9 cm in length. The liver appears heterogeneous likely from fatty replacement. The visualized portions of the pancreas appear unremarkable. The right kidney measures 9.8 x 4.1 x 5.6 cm. No hydronephrosis. No aneurysmal dilatation in the upper abdominal aorta. IMPRESSION: There is sludge in the gallbladder. The common bile duct is dilated to 0.83 cm in diameter. Choledocholithiasis cannot be excluded. The liver appears heterogeneous likely from fatty replacement. Electronically signed by: Keith Arthur MD 01/16/2020 6:42 PM CDT
[2020-01-16] MEDS: APIXABAN 5 MG TAB PO SCH (22:33)
[2020-01-16] MEDS: CARVEDILOL 3.125 MG TAB PO SCH (22:33)
[2020-01-17] MEDS ORDERED: LISINOPRIL 5 MG TAB ONE (07:14)
--- NOTE | 2020-01-17 07:30 | RAD ---
Exam(s): XR CHEST 2 VIEWS: 01/17/2020 7:00 AM CDT Indication: right side pneumo MAIN Comparison Study Date: CT January 16, 2020 Technique: 2 view chest radiograph. Findings: There is mild atelectasis or scar within the right lung base, similar as on yesterday's CT. The lungs are otherwise clear. . Small right-sided pneumothorax is still visible. There is less than 1 cm of pleural separation in the apex. Heart size is normal. Normal mediastinal contours. No bone abnormality is identified. IMPRESSION: Small right pneumothorax is still present. No new abnormality. Electronically signed by: Calixto Bryant MD 01/17/2020 7:29 AM CDT
[2020-01-17] MEDS: SPIRONOLACTONE 25 MG TAB PO SCH (09:05)
[2020-01-17] MEDS: LISINOPRIL 5 MG TAB PO SCH (09:05)
[2020-01-17] MEDS: levoFLOXacin 500MG IV 500 MG in PREMIX BAG 1 BAG IVPB SCH (09:05)
[2020-01-17] MEDS: ASPIRIN (CHEWABLE) 81 MG TAB PO SCH (09:06)
[2020-01-17] MEDS: KCL 20MEQ/D5 1/2NS 1,000 ML IVS PRN ×2 (09:06→23:25)
[2020-01-17] MEDS: CARVEDILOL 3.125 MG TAB PO SCH ×2 (09:06→20:14)
[2020-01-17] MEDS: APIXABAN 5 MG TAB PO SCH ×2 (09:08→20:14)
[2020-01-17] MEDS ORDERED: ATORVASTATIN 20 MG TAB PO ONE (19:23)
[2020-01-17] MEDS: ATORVASTATIN 20 MG TAB PO SCH (20:14)
--- NOTE | 2020-01-18 06:24 | RAD ---
CHEST X-RAY 2 view on 01/18/2020 CLINICAL INDICATION: Follow-up pneumothorax COMPARISON: 01/17/2020 FINDINGS: On lateral view there may be a small residual right pneumothorax anteriorly, this is no longer visualized on the frontal view. The lungs are otherwise clear. Cardiac, hilar and mediastinal contours are within normal limits. Pulmonary vascularity is within normal limits. IMPRESSION: Possible small residual right pneumothorax with otherwise no acute disease. Electronically signed by: Lit Edward 01/18/2020 6:22 AM CDT
[2020-01-18] MEDS: ASPIRIN (CHEWABLE) 81 MG TAB PO SCH (08:36)
[2020-01-18] MEDS: SPIRONOLACTONE 25 MG TAB PO SCH (08:36)
[2020-01-18] MEDS: APIXABAN 5 MG TAB PO SCH ×2 (08:36→20:27)
[2020-01-18] MEDS: LISINOPRIL 5 MG TAB PO SCH (08:36)
[2020-01-18] MEDS: CARVEDILOL 3.125 MG TAB PO SCH ×2 (08:37→20:27)
[2020-01-18] MEDS: levoFLOXacin 500MG IV 500 MG in PREMIX BAG 1 BAG IVPB SCH (08:37)
--- NOTE | 2020-01-18 09:12 | PN ---
SUPERVISING PHYSICIAN: Saravanan Ken MD DATE: 01/17/20 SUBJECTIVE: The patient is doing well He is not reporting any shortness of breath at this point. He said the pain in his right side is gone. He has had no further complaints. No chest pain, no nausea or vomiting, he has tolerated diet. OBJECTIVE: VITAL SIGNS: Temperature 98, pulse 59, blood pressure 110/70, respirations 18, oxygen saturation 97% on room air. GENERAL: The patient seems to be resting comfortably, no acute distress. CHEST: Clear to auscultation, no crepitus. Chest wall excursion is equal and bilateral. No obvious rales or rhonchi noted. HEART: Regular rate and rhythm. ABDOMEN: Soft, non-tender, positive bowel sounds. No CVA tenderness. EXTREMITIES: Without cyanosis, clubbing, or edema. NEUROLOGIC: He is alert and oriented x3. LABORATORY: White count today 17,300 with hemoglobin 14.4, hematocrit 41.8, platelet count 250,000. Differential does show a slight left shift. Chemistries show a potassium 3.5, otherwise within normal limits. Creatinine 0.83. Bilirubin elevated today at 2.0. AST is up to 79, ALT 102. Magnesium 1.9. Urinalysis within normal limits. RADIOLOGY: Repeat chest x-ray today per radiology interpretation shows a small right pneumatothorax is present. No new abnormalities. He had a liver ultrasound done which per radiology interpretation showed sludge in the gallbladder and the common bile duct to be dilated at 0.83 cm. ASSESSMENT: 1. Right sided spontaneous pneumothorax. 2. Leukocytosis, likely secondary to #1. No current signs of pneumonia. 3. Elevated liver enzymes with questionable sludge in the gallbladder, surgical consultation with Dr. Rubin pending. 4. History of previous myocardial infarction with anterior wall involvement and resulting cardiac arrest in June of 2019. 5. Left ventricular apical thrombus on Eliquis. 6. Congestive heart failure secondary to ischemic cardiomyopathy with last echocardiogram in August of 2019 showing ejection fraction 35-40% and the left ventricular thrombus. PLAN: Will continue current plan of care. Follow the patient along with Dr. Rubin with regard to the pneumothorax as well as workup on the elevated liver enzymes and questionable gallstones. I would anticipate hopefully he can be discharged tomorrow, he is room air now. He will need his gallbladder out at some point but given he has a thrombus in his left ventricle, will just have to do that later at possibly a larger hospital, next week, arranged and decisions made as an outpatient through Dr. Rubin's office. Until we can discharge and manage as an outpatient, we will continue to monitor and treat as needed. #[id number] [facility]
--- NOTE | 2020-01-18 16:59 | PN ---
SUPERVISING PHYSICIAN: Saravanan Ken MD DATE: 01/18/20 SUBJECTIVE: The patient is sitting up in bed. He has no complaints of chest pain or shortness of breath, but he does complain that when falling asleep, he feels like he is suffocating and that his heart rate is "jumping out of his chest." I reviewed his oxygen saturations and they have all been stable. He has agreed to wearing a library monitor at home prior to seeing Dr. Foy for followup. OBJECTIVE: VITAL SIGNS: Temperature 98, heart rate 74, blood pressure 107/73, respiratory rate 15, O2 saturation 100% on non-rebreather and then he dropped to 95% on room air. RESPIRATORY: Essentially clear to auscultation bilaterally. CARDIAC: Regular rate and rhythm. NEUROLOGIC: Awake, alert and oriented times three. LABORATORY: WBCs 11,300, hemoglobin 14.8, hematocrit 43.1. Electrolytes are basically within normal limits. Bilirubin has improved to 1.2. AST 100, ALT 138. Chest x-ray shows possible small residual right pneumothorax, but otherwise no acute disease. All other labs and films have been reviewed via the EMR. ASSESSMENT: 1. Right sided spontaneous pneumothorax. 2. Leukocytosis, likely secondary to #1. No current signs of pneumonia. 3. Elevated liver enzymes with questionable sludge in the gallbladder. Dr. Rubin has been consulted. 4. History of previous myocardial infarction. 5. Left ventricular apical thrombus on Eliquis. 6. Congestive heart failure secondary to ischemic cardiomyopathy with last echocardiogram in August of 2019 showing ejection fraction 35-40% and left ventricular thrombus. PLAN: We will continue present supportive care. I spoke with Dr. Rubin and he felt that given his new complaints, it would be worth watching him overnight. I have ordered an increased check on his O2 saturations and I have gotten him a primary care physician in Dr. Moncho Foy and he will see him in close followup. Dr. Rbuin expected that the patient should have a repeat ultrasound as an outpatient and he may need an MRCP. He will also need close followup on his liver enzymes. He should also go home on a library monitor. We will watch him closely overnight. I have ordered lab and CRP for in the morning. Hopefully we can discharge him tomorrow. I have also discontinued his oxygen as he has been 95% or greater on room air. We will follow and treat as needed. #[id number] [facility]
[2020-01-18] MEDS: ATORVASTATIN 20 MG TAB PO SCH (20:27)
[2020-01-19] MEDS ORDERED: MAGNESIUM HYDROXIDE 30 ML UD ONE (08:11)
[2020-01-19] MEDS ORDERED: MAGNESIUM HYDROXIDE 30 ML UD PO ONE (08:13)
[2020-01-19] MEDS: SPIRONOLACTONE 25 MG TAB PO SCH (08:31)
[2020-01-19] MEDS: APIXABAN 5 MG TAB PO SCH (08:31)
[2020-01-19] MEDS: CARVEDILOL 3.125 MG TAB PO SCH (08:31)
[2020-01-19] MEDS: ASPIRIN (CHEWABLE) 81 MG TAB PO SCH (08:31)
[2020-01-19] MEDS: SODIUM CHLORIDE 0.9% (FLUSH) 10 ML SYG IV PRN (08:32)
[2020-01-19] MEDS: levoFLOXacin 500MG IV 500 MG in PREMIX BAG 1 BAG IVPB SCH (08:32)
[2020-01-19] MEDS: LISINOPRIL 5 MG TAB PO SCH (08:32)
[2020-01-19] MEDS: IV SET AND CAP CHANGE INJ INJ SCH (12:53)
[2020-01-19 13:20] VITALS: BP 113/79; TEMP 97.8; O2SAT 97
--- NOTE | 2020-01-20 14:31 | DS ---
SUPERVISING PHYSICIAN: Saravanan Ken MD DISCHARGE DIAGNOSES: 1. Right sided spontaneous pneumothorax. 2. Leukocytosis most likely secondary to #1. 3. Elevated liver enzymes with questionable sludge in the gallbladder. Dr. Rubin was consulted. 4. History of previous myocardial infarction. 5. Left ventricular apical thrombus on Eliquis. 6. Congestive heart failure secondary to ischemic cardiomyopathy with last echocardiogram showed an ejection fraction 35-40% with a left ventricular thrombus. HISTORY OF PRESENT ILLNESS: This is a 49-year-old male patient who has a history of ischemic cardiomyopathy secondary to an myocardial infarction he suffered in June of this year. It was found he had a left ventricular thrombus and he is on Eliquis routinely. He came to the Emergency Room complaining of some dizziness, right flank pain and some mild anxiety. It was noted the flank pain was stabbing. He denied any actual trauma. The dizziness had been going on for 2 or 3 days. He did complain of coughing when he took a deep breath and it made the pain worse. A CT of his chest demonstrated a small, less than 10%, right sided pneumothorax. There were no rib fractures. His vital signs initially showed an oxygen saturation of 98% on room air. He was mildly tachypneic at 22 and slightly hypertensive with blood pressure 139/98, heart rate 108, temperature 98.5. An abdominopelvic CT was also done and showed a distended bladder and other than the small right sided pneumothorax, there were no acute findings. The patient was placed on oxygen therapy and Dr. Rubin was consulted for the pneumothorax. He was initially placed in observation. HOSPITAL COURSE: The patient was admitted to the hospital for observation and close monitoring of the underlying pneumothorax. His vital signs remained stable. He was on the high-flow oxygen initially in the form of a nonrebreather and his labs and chest x-ray were monitored closely. Dr. Rubin also ordered an ultrasound to further assess the liver due to his elevated liver enzymes. He was on telemetry for close cardiac monitoring and his Eliquis and home medications were continued. Over the next few days, he was changed to inpatient and there were no reports of shortness of breath. He did say that he had periods at night where he felt like he was losing consciousness but it only lasted a few seconds. He also said that he felt like his heart was trying to "be out of his chest." 02 saturations remained greater than 96% even after discontinuance of the oxygen. His traffic monitor specialist showed no anomalies. Dr. Rubin and I discussed his case with Dr. Foy who agreed to see the patient in followup. He was placed on Levaquin due to the leukocytosis and questionable GI etiology of his leukocytosis. His vital signs remained stable other than his liver enzymes. His lab was stable and he will be discharged today in stable condition. LABORATORY: WBC initially 16.7, went up to 17.3 and are now 12.3. Hemoglobin and hematocrit are stable at 15.8 and 45.9. Sodium 134 to 140, potassium 3.5 to 4.5, chloride was a 96 to 102. BUN 14, creatinine 0.96, his total bilirubin initially was 1.6, went up to 2 and is now 1.2. Initial bilirubin showed direct bilirubin at 0.3 and indirect bilirubin 1.3. AST was 77 and went as high as 100, today is 55. ALT was 97 on admission, went up to 138 and is now 116. Alkaline phosphatase was within normal limits, between 89 and 103. Creatinine kinase initially was 539 and today was 58. Urinalysis was within normal limits. His initial radiology reports are in the history of present illness. His liver ultrasound shows there is sludge in the gallbladder, the common bile duct is dilated to 0.83 cm in diameter. Choledocholithiasis could not be excluded. The liver appears heterogeneous, likely from fatty replacement. His final chest x-ray shows possible small residual right pneumothorax but otherwise no acute disease. DISCHARGE PLAN: The patient will be discharged home in stable condition. He is to resume his previous diet and increase his activity as tolerated. In addition to his routine home medications he is to have Align and 5 days of Levaquin. He has a followup appointment with Dr. Moncho Foy on 01/21/20 at 2:15 PM. He will have some routine lab drawn at that time and will most likely need a referral to a GI specialist. Dr. Rubin said he could be contacted at anytime in regards to the patient's care. He is to return to the hospital or followup with Dr. Foy or Dr. Rubin for any problems or complications. DISCHARGE MEDICATIONS: 1. Spironolactone. 2. Lisinopril. 3. Carvedilol. 4. Atorvastatin. 5. Aspirin. 6. Eliquis. 7. Align. 8. Levaquin. [facility][id number] [facility]
== END 2020-01-19 13:35 | disposition home or self-care (01) ==
LOC: ER 07:46 → MS 11:34
PROVIDERS: ADMIT Nurse Practitioner Family; ATTEND Nurse Practitioner Acute Care
DX: J93.83 Other pneumothorax (principal); D72.829 Elevated white blood cell count, unspecified; R74.8 Abnormal levels of other serum enzymes; E86.0 Dehydration; I23.6 Thrombosis of atrium, auricular appendage, and ventricle as current complications following acute myocardial infarction; I25.5 Ischemic cardiomyopathy; I11.0 Hypertensive heart disease with heart failure; I50.9 Heart failure, unspecified; I25.2 Old myocardial infarction; F41.9 Anxiety disorder, unspecified; K82.9 Disease of gallbladder, unspecified; N32.89 Other specified disorders of bladder; Z79.01 Long term (current) use of anticoagulants; Z79.82 Long term (current) use of aspirin; Z79.899 Other long term (current) drug therapy; Z88.0 Allergy status to penicillin; Z87.891 Personal history of nicotine dependence
CPT/HCPCS: 96366 ×2; 96367; 96365; 96375; 96376 ×2; J1956 ×3; J2060; J7799; A4216 ×2; 80053 ×3; 36415 ×5; 82550 ×2; 80048; 82553; 85025 ×4; 85730; 85610; 84484; 81001; 80076; 83735 ×2; 36416; 71045; 71046 ×2; 71260; 74176; 76705; 94760 ×2; 94762 ×3; 99285; 93005; G0378

== ENCOUNTER → 2020-01-19 | Outpatient (CLI) | payer OTHER | LOC: RESP 13:46 | PROVIDERS: ATTEND Nurse Practitioner Acute Care | DX: I50.30 Unspecified diastolic (congestive) heart failure (principal); I25.6 Silent myocardial ischemia; R00.1 Bradycardia, unspecified ==